=== PATIENT | male | born 1960 | race Caucasian/White ===

== ENCOUNTER 2019-09-25 14:52 | Observation (INO) | payer OTHER ==
[2019-09-25 17:49] LABS: #Basophils 0.1 thou/uL (0.0-0.2); #Eosinphils 0.3 thou/uL (0.0-0.7); #Lymphocytes 2.6 thou/uL (1.20-3.40); #Monocytes 0.7 thou/uL (0.11-0.59); #Neutrophils 4.8 thou/uL (1.40-6.50); %Basophils 1.4 % (0.0-1.0); %Eosinophils 3.6 % (0.0-10.0); %Lymphocytes 30.5 % (21.0-51.0); %Monocytes 7.9 % (0.0-10.0); %Neutrophils 56.6 % (42.0-75.0); Hemoglobin 17.4 g/dL (14.0-18.0); Mean Corpuscular HGB CONC 33.1 g/dL (32.0-36.0); Mean Corpuscular Hemoglobin 29.1 pg (27.0-31.0); Mean Corpuscular Volume 87.7 fL (78.0-98.0); Mean Platelet Volume 6.6 fL (7.4-10.4); Platelet Count 254 thou/uL (130-400); RBC Distribution Width 14.3 % (11.5-14.5); Red Blood Cell (RBC) Count 5.97 mill/uL (4.70-6.10); White Blood Cell (WBC) Count 8.6 thou/uL (4.8-10.8)
[2019-09-25 18:14] LABS: ALT (SGPT) 32 U/L (8-55); AST (SGOT) 22 U/L (5-34); Albumin 4.8 g/dL (3.5-5.0); Alkaline Phosphatase 132 U/L (40-110); Anion Gap 14 mmol/L (10-20); BUN (Urea Nitrogen) 15 mg/dL (8.4-25.7); Bilirubin, Total 0.4 mg/dL (0.2-1.2); Calc. Creatinine Clearance 0 mL/min (70-130); Calcium 9.8 mg/dL (7.8-10.44); Carbon Dioxide 25 mmol/L (22-29); Chloride 105 mmol/L (98-107); Estimated GFR-MDRD 69; Globulin 3.1 g/dL (2.4-3.5); Glucose 81 mg/dL (70-105); Potassium 4.5 mmol/L (3.5-5.1); Protein, Total 7.9 g/dL (6.0-8.3); Sodium 139 mmol/L (136-145)
[2019-09-25 18:22] VITALS: BMI 28.3
[2019-09-25] MEDS ORDERED: hydrALAZINE 20 MG/ML VIAL SLOW IVP PRN (19:00)
[2019-09-25] MEDS ORDERED: Nitroglycerin 0.4 MG TAB (25 Tab Bottle) PO PRN (19:00)
[2019-09-25] MEDS ORDERED: tiZANidine HCl 4 MG TAB PO PRN (19:00)
[2019-09-25] MEDS ORDERED: Acetaminophen 325 MG TAB PO PRN (19:00)
[2019-09-25] MEDS: Varenicline Tartrate 0.5 MG TAB PO SCH (20:16)
[2019-09-25] MEDS: Gabapentin 400 MG CAP PO SCH (20:16)
[2019-09-25] MEDS: HYDROcodone/Acetaminophen 7.5/325 mg Tablet PO SCH (20:17)
[2019-09-25 20:52] LABS: Troponin I 0.011 ng/mL (< 0.028)
--- NOTE | 2019-09-25 22:50 | HP ---
The patient currently does not have a primary care physician. CHIEF COMPLAINT: Chest pain. HISTORY OF PRESENT ILLNESS: Mr. Drake is a very pleasant 59-year-old gentleman who has history of hyperlipidemia as well as tuberculosis infection. He says that in the last 3 weeks he has been experiencing chest pain and he had 2 episodes more recently and says that the episodes have been becoming progressively more frequent. He says that he had an episode [place]. He says that he describes it as squeezing of his chest like somebody was trying to squeeze it to . He rates it about a 6/10. It is nonradiating. There are no associated symptoms such as nausea, vomiting, or diaphoresis. He says the episodes can last up to about 30 minutes and typically get better when he sits and rests. He says his saw him earlier today, clutching his chest and leaning over and basically insisted that he come to the emergency room for evaluation. There they did an EKG on him and noticed some T-wave inversions in V1 and V2, and he has been transferred to our facility for further evaluation. Currently, he is chest-pain free. He also denies any pains in his legs or any long trips. No leg swelling. No palpitations and prior to 3 weeks ago, he has not had any episodes like this before. He is a smoker and he has a strong family history and these are the reasons for his placement in observation. REVIEW OF SYSTEMS: All systems were reviewed and are negative except for that mentioned in the history of present illness. PAST MEDICAL HISTORY: Significant for hyperlipidemia, latent TB, and anxiety. PAST SURGICAL HISTORY: He has had cervical spine surgery x2, 1st an anterior approach and then posterior. He has had an appendectomy and right lower extremity surgery due to a fall when he was a child and he fractured his leg in 3 places. ALLERGIES: NO KNOWN DRUG ALLERGIES. SOCIAL HISTORY: He is . He used to work as a hand trucker. He has 3 children. He smokes about a pack a day. He says he is down from 2 packs a day and he has been a smoker "all of his life, but at least for 40 years, he rarely drinks alcohol." CURRENT MEDICATIONS: Include: 1. Fluoxetine 20 mg daily. 2. Gabapentin 800 mg t.i.d. 3. [place] 7.5/325 one tablet t.i.d. 4. Zanaflex 4 mg t.i.d. as needed. 5. Chantix 1 mg twice daily. PHYSICAL EXAMINATION: GENERAL: He is alert and oriented. He appears to be in no acute distress. He is well developed and well nourished. VITAL SIGNS: Blood pressure was 143/93, heart rate 66, respiratory rate of 18, and he is afebrile. HEENT: Pupils are equal, round, and reactive. Extraocular muscles are intact. His sclerae are anicteric. Throat, no erythema, no exudates. NECK: No adenopathy, no bruits. LUNGS: Clear to auscultation. There is no wheezing, no rales, no rhonchi. CARDIOVASCULAR: He has a normal S1 and S2. I did not appreciate an S3 or S4. No murmurs, clicks, or rubs. ABDOMEN: Soft, it is nontender, nondistended. Positive for bowel sounds. There is no rebound, no guarding, no organomegaly. EXTREMITIES: There is no clubbing or cyanosis. No edema. No calf tenderness. No joint effusions. NEUROLOGIC: The exam is grossly nonfocal. SKIN AND INTEGUMENT: No skin changes, no rash. LABORATORY DATA: The white blood cell count is 8.6, hemoglobin is 17.4, hematocrit is 52.4, and platelet count is 254. He had a troponin of less than 0.010. EKG was sinus at the rate of 67. He had some T-wave inversions in V1 and V2, and some nonspecific ST-T wave changes. EKG was reviewed by me. Chest x-ray also reviewed by me. It is actually poorly penetrated. The heart size is normal. There was no ST wave changes. ASSESSMENT: 1. This is a 59-year-old gentleman who presents to the emergency room with chest pain. The characteristics of which are suspicious for angina and that it is relieved by rest and has tightness characteristic. He also has a strong family history and is a smoker. For this reason, he is being placed in observation. He will be ruled out with cardiac enzymes and check his lipid panel and get an exercise stress test in the a.m. to further help stratify his risk for coronary artery disease. 2. Hyperlipidemia. Again, lipid panel will be checked. We will also need to reconcile and restart his cholesterol medication. 3. Tobacco abuse. It appears that he already has a plan to quit and has been cutting back and we will continue to encourage this. Job ID: [id number]
[2019-09-25] MEDS: Nitroglycerin 2% Ointment 1 INCH/1 GM Packet TOP SCH (23:02)
[2019-09-25 23:43] LABS: Troponin I Less than 0.010 ng/mL (< 0.028)
[2019-09-26] MEDS: Nitroglycerin 2% Ointment 1 INCH/1 GM Packet TOP SCH ×2 (04:15→15:25)
[2019-09-26 05:04] LABS: #Basophils 0.1 thou/uL (0.0-0.2); #Eosinphils 0.3 thou/uL (0.0-0.7); #Lymphocytes 2.6 thou/uL (1.20-3.40); #Monocytes 0.7 thou/uL (0.11-0.59); #Neutrophils 4.2 thou/uL (1.40-6.50); %Basophils 1.2 % (0.0-1.0); %Eosinophils 4.3 % (0.0-10.0); %Lymphocytes 32.2 % (21.0-51.0); %Monocytes 9.3 % (0.0-10.0); Hemoglobin 16.1 g/dL (14.0-18.0); Mean Corpuscular Hemoglobin 31.1 pg (27.0-31.0); Mean Corpuscular Volume 86.5 fL (78.0-98.0); Mean Platelet Volume 6.6 fL (7.4-10.4); Platelet Count 247 thou/uL (130-400); Red Blood Cell (RBC) Count 5.19 mill/uL (4.70-6.10)
[2019-09-26 05:25] LABS: Anion Gap 13 mmol/L (10-20); BUN (Urea Nitrogen) 19 mg/dL (8.4-25.7); Calc. Creatinine Clearance 75 mL/min (70-130); Calcium 9.5 mg/dL (7.8-10.44); Carbon Dioxide 27 mmol/L (22-29); Cardiac Risk 9.1 (Less than 4.5); Chloride 104 mmol/L (98-107); Cholesterol 283 mg/dl (< 200 Desired); Estimated GFR-MDRD 57; Glucose 106 mg/dL (70-105); HDL Cholesterol 31 mg/dL (>60 Neg Risk); Potassium 4.9 mmol/L (3.5-5.1); Sodium 139 mmol/L (136-145); Triglycerides 538 mg/dL (Less than 150)
--- NOTE | 2019-09-26 07:22 | PDOC.HOSPP ---
- Subjective Encounter Date: 09/26/19 Encounter Time: 08:15 Subjective: Follow up with Mr. Drake, who presented yesterday with an episode of chest pain , SOB and diaphoresis. Patient states that there are no new episodes of chest pain or difficulty breathing. Denies any new symptoms - Objective Vital Signs & Weight: Vital Signs (12 hours) Temp Pulse Resp BP Pulse Ox 09/26/19 04:44 98.4 F 84 16 135/80 94 L 09/25/19 23:10 97.5 F L 77 16 131/80 93 L Weight Weight 192 lb I&O: 09/25/19 09/26/19 09/27/19 06:59 06:59 06:59 Intake Total 290 Output Total 150 Balance 140 Result Diagrams: 09/26/19 04:44 09/26/19 04:44 Hospitalist ROS - Review of Systems All other systems reviewed; all pertinent +/- noted in HPI/Subj - Medication Medications: Active Medications Generic Name Dose Route Start Last Admin Trade Name Freq PRN Reason Stop Dose Admin Hydrocodone Bitart/Acetaminophen 1 tab 09/25/19 21:00 09/25/19 20:17 [place] 7.5/325 PO 1 tab TID RICO Administration Gabapentin 800 mg 09/25/19 21:00 09/25/19 20:16 Neurontin PO 800 mg TID RICO Administration Nitroglycerin 0.5 inch 09/25/19 22:00 09/26/19 04:15 Nitro-Bid 2% Ointment TOP Not Given Q8HR RICO Varenicline 1 mg 09/25/19 21:00 09/25/19 20:16 Chantix PO 1 mg BID RICO Administration - Exam Neck: no carotid bruit Heart: RRR, no murmur, no gallops, no rubs Respiratory: CTAB, wheezes (mild) Extremities: no cyanosis, no edema Musculoskeletal: normal tone, normal strength Psychiatric: normal affect, normal behavior, A&O x 3 Hosp A/P (1) Chest pain Code(s): R07.9 - CHEST PAIN, UNSPECIFIED Status: Acute (2) Blood in stool Code(s): K92.1 - MELENA Status: Acute - Plan * Chest pain- repeat cardiac enzymes, perform Stress test today * Elevated triglycerides and cholesterol- continue statin and begin a heart healthy diet * Blood in stool- refer to GI and perform colonoscopy outpatient * Patient seen and examined with Galina Voss MS-2 and agree with above. Mr. Drake has not had any chest pain today. Exam is unremarkable. Stress test was negative. However he has significant risk for CAD. Will start on aspirin Lipitor, and Carvediolol, and recommend Urgent outpatient Cardiology referral. If symptoms return- return to ER
[2019-09-26] MEDS ORDERED: Aspirin 325 mg Enteric Coated Tablet PO SCH (09:00)
[2019-09-26] MEDS ORDERED: FLU VACC QS2019-20(6MOS UP)/PF 60 MCG/0.5 ML SYRINGE IM ONE (09:00)
[2019-09-26] MEDS ORDERED: FLUoxetine HCl 20 MG CAP PO SCH (09:00)
[2019-09-26] MEDS: Gabapentin 400 MG CAP PO SCH ×2 (12:03→15:24)
[2019-09-26] MEDS: HYDROcodone/Acetaminophen 7.5/325 mg Tablet PO SCH ×2 (12:04→15:24)
[2019-09-26] MEDS: Varenicline Tartrate 0.5 MG TAB PO SCH (12:05)
--- NOTE | 2019-09-26 13:12 | NM ---
CARDIAC SPECT: CLINICAL HISTORY: 59-year-old male with chest pain. Dyslipidemia, smoker. Family history of coronary artery disease. TECHNIQUE: A myocardial perfusion scan was performed using the single isotope one day protocol with technetium-9 9m sestamibi. 11 mCi were injected intravenously for the rest exam followed by 30 mCi for the stress exam. Exercise stress was monitored and interpreted by Marlene Sheriff NP. FINDINGS: Homogeneous tracer distribution is seen in the myocardial segments on stress and rest images without fixed or reversible defects. GATED SPECT LVEF: 71%. WALL MOTION EXAM: Normal. IMPRESSION: Normal myocardial perfusion scan. POS: OFF
[2019-09-26 16:44] VITALS: BP 127/79; TEMP 97.6
--- NOTE | 2019-09-27 03:54 | DIS ---
DATE OF ADMISSION: 09/25/2019 DATE OF DISCHARGE: 09/26/2019 The patient currently does not have a primary care physician. DISCHARGE DISPOSITION: Home. DISCHARGE DIAGNOSES: 1. Chest pain, unknown etiology. 2. Hyperlipidemia. 3. Tobacco abuse. 4. History of latent tuberculosis. 5. History of anxiety. 6. Chronic pain. DISCHARGE MEDICATIONS: 1. Carvedilol 3.125 mg p.o. twice daily. 2. Atorvastatin 80 mg at bedtime. 3. Aspirin 81 mg daily. 4. Continue Chantix 1 tab twice daily. 5. Zanaflex 4 mg t.i.d. as needed. 6. [place] 7.5/325 one tablet t.i.d. as needed. 7. Gabapentin 800 mg p.o. t.i.d. 8. Prozac 20 mg p.o. daily. CODE STATUS: Full code. ALLERGIES: NO KNOWN DRUG ALLERGIES. PROCEDURES DONE DURING ADMISSION: The patient had a nuclear stress test, which was read as normal with homogeneous tracer distribution throughout the segments. There was no fixed or reversible defects. The ejection fraction was estimated at 71%. HOSPITAL COURSE: Mr. Drake is a pleasant 59-year-old gentleman who was admitted to the hospital with complaints of chest pain. The description of which was fairly typical. He also has history of smoking and a family history of heart disease. He was placed in observation and ruled out and an exercise Cardiolite test was performed, this was negative. The patient did reach his target heart rate. However, due to his significant risk factors, I do recommend that he have an outpatient cardiology evaluation and he will be discharged home on a low-dose aspirin as well as carvedilol and Lipitor and has been instructed to follow up with Dr. Stephanie Menon as soon as possible and also to get an outpatient referral to Cardiology. Job ID: [id number]
--- NOTE | 2019-09-29 17:02 | EKG ---
Test Reason : Blood Pressure : / mmHG Vent. Rate : 068 BPM Atrial Rate : 068 BPM P-R Int : 166 ms QRS Dur : 078 ms QT Int : 402 ms P-R-T Axes : 055 035 057 degrees QTc Int : 427 ms Normal sinus rhythm Nonspecific T wave abnormality Abnormal ECG Confirmed by MAYCO RAMEY ([id number]), technical writer and editor JENNIFER DEWITT ([id number]) on 09/29/2019 5:01:54 PM Referred By: Confirmed By:MAYCO RAMEY
== END 2019-09-26 18:28 | disposition home or self-care (01) ==
LOC: ERS 14:52 → 2SW 16:20
PROVIDERS: ADMIT Internal Medicine; ATTEND Internal Medicine
DX: R07.89 Other chest pain (principal); E78.2 Mixed hyperlipidemia; F17.210 Nicotine dependence, cigarettes, uncomplicated; F41.9 Anxiety disorder, unspecified; G89.29 Other chronic pain; K92.1 Melena; Z22.7 Latent tuberculosis; Z82.49 Family history of ischemic heart disease and other diseases of the circulatory system; Z79.899 Other long term (current) drug therapy
CPT/HCPCS: 36415; 78452; 80048; 80061; 83880; 85025; 90471; 90686; 90732; 93005; 93017; 94760; A9500; G0008; G0009; G0378

== ENCOUNTER 2019-12-12 06:45 | Day surgery (SDC) | payer OTHER, BC ==
[2019-12-11 12:50] VITALS: BMI 29.5
[2019-12-12 07:55] VITALS: BP 112/71; TEMP 98.8
--- NOTE | 2019-12-12 10:29 | RAD ---
CERVICAL MYELOGRAM: HISTORY: Previous cervical fusion. Cervical radiculopathy. EXPOSURE: 0.6 minutes, 137.7 mGy/m2. FINDINGS: Two-view racking technician lumbar spine radiograph demonstrates 5 lumbar-type vertebrae. Vertebral body height is maintained. No fracture. No spondylolisthesis or spondylolysis. Disc space heights are preserved. Visualized bony pelvis and sacrum are intact. Two-view racking technician cervical spine radiograph demonstrates an anterior fusion plate with transvertebral jonn dy screws at C4, C5 and C6. Posterior fusion hardware is noted from C4 through C6. C4-C5 and C5-C6 disc prosthesis. No perihardware lucency. No prevertebral soft tissue swelling. Predental space is no rmal. Successful lumbar puncture. A total of 9 cc of Isovue-M 300 contrast was administered intrathecally. Patient tolerated the procedure well. No immediate or postprocedural complications. TECHNIQUE: Consent obtained to perform a lumbar puncture for cervical myelogram. Patient's back was evaluated. T he L3-L4 level was deemed appropriate. Skin was prepped and draped in a sterile fashion. 1% lidocaine, buffered with sodium bicarbonate was used for local anesthesia. Under fluoroscopic guidanc e, a 22-gauge spinal needle was advanced into the CSF space. A total of 9 cc of Isovue-M 300 contrast was administered intrathecally. Patient tolerated the procedure well. No immediate or postpr ocedure complications. IMPRESSION: Successful lumbar puncture for cervical myelogram. Transcribed Date/Time: 12/12/2019 10:35 AM
--- NOTE | 2019-12-12 11:16 | CT ---
POST MYELOGRAM CERVICAL SPINE CT: HISTORY: Cervical fusion, anterior and posterior. Cervical radiculopathy. COMPARISON: None. TECHNIQUE: Cervical spine CT is performed in the axial length. Three-dimensional reformatted images are submitte d. FINDINGS: No craniocervical dissociation. Appropriate alignment of the lateral masses of C1 and C2. Intact odon toid process. No cervical spine fracture. Vertebral body heights are maintained. No acute abnormality with regard to the soft tissue neck structures. Emphysematous changes in the sheila g apices. Anterior fusion plate with transvertebral body screw at C4, C5 and C6. No associated anterior fusion hardware lucency. There are bilateral trans-facet screws at C4, C5 and C6 with associated vertical stabilization sterling. No posterior element perihardware lucency. C4-C5 and C5-C6 disc prosthesis. C2-C3: No significant central canal stenosis. Neural foramina are patent. C3-C4: Broad-based disc bulge with a central disc herniation contacts the ventral cord. Mild to moder ate central canal stenosis. Moderate to severe bilateral neural foraminal narrowing due to uncovertebral and facet hypertrophy. C4-C5:Disc prosthesis. Broad-based osteophyte ridge with a central osteophyte that does abut and defo rm the midline cord. Mild to moderate central canal stenosis. Bilaterally, neural foramina are mildly narrowed due to uncal vertebral hypertrophy. C5-C6: Broad-based osteophyte ridge which abuts the thecal sac. There is mild mass effect upon the ce rvical cord. Mild central canal stenosis. Moderate bilateral neural foraminal narrowing due to uncovertebral hypertrophy. C6-C7:Broad-based disc-osteophyte complex abuts the thecal sac. Mild central canal stenosis. Moderate bilateral foraminal narrowing due to uncovertebral hypertrophy. C7-T1: No significant central canal stenosis. Neural foramina are patent. IMPRESSION: 1. .Anterior and posterior fusion from C4 through C6 as described above. No perihardware lucency. 2. Mild to moderate central canal stenosis at C3-C4 and C4-C5, mild central canal stenosis at C5-C6 a nd mild central canal stenosis at C6-C7. 3. Varying degrees of neural foraminal narrowing as described above. Transcribed Date/Time: 12/12/2019 11:30 AM
[2019-12-12] MEDS ORDERED: Iopamidol-M 300 61% 15 ML VIAL ONE (11:43)
== END 2019-12-12 09:35 | disposition home or self-care (01) ==
LOC: RAD 06:45
PROVIDERS: ATTEND Neurological Surgery
PROC: B01B1ZZ Fluoroscopy of Spinal Cord using Low Osmolar Contrast (ICD-10-PCS; principal; 2019-12-12)
DX: M48.02 Spinal stenosis, cervical region (principal); M54.12 Radiculopathy, cervical region; E78.00 Pure hypercholesterolemia, unspecified; F41.9 Anxiety disorder, unspecified; F32.9 Major depressive disorder, single episode, unspecified; F17.200 Nicotine dependence, unspecified, uncomplicated; Z79.82 Long term (current) use of aspirin; Z79.899 Other long term (current) drug therapy; Z86.15 Personal history of latent tuberculosis infection; Z98.1 Arthrodesis status
CPT/HCPCS: 62302; 72126; Q9967

== ENCOUNTER 2020-01-11 06:23 | Outpatient (CLI) | payer OTHER, BC ==
[2020-01-11 09:54] LABS: Mean Corpuscular HGB CONC 34.6 g/dL (32.0-36.0); Mean Corpuscular Hemoglobin 30.4 pg (27.0-31.0); Mean Platelet Volume 6.8 fL (7.4-10.4); Platelet Count 239 thou/uL (130-400); RBC Distribution Width 13.9 % (11.5-14.5); Red Blood Cell (RBC) Count 5.59 mill/uL (4.70-6.10); White Blood Cell (WBC) Count 10.9 thou/uL (4.8-10.8)
[2020-01-11 10:14] LABS: Anion Gap 13 mmol/L (10-20); BUN (Urea Nitrogen) 12 mg/dL (8.4-25.7); Calc. Creatinine Clearance 0 mL/min (70-130); Carbon Dioxide 26 mmol/L (22-29); Chloride 105 mmol/L (98-107); Estimated GFR-MDRD 61; Glucose 129 mg/dL (70-105); Sodium 140 mmol/L (136-145)
[2020-01-11 17:50] LABS: SARS-CoV-2 MS2 Positive; SARS-CoV-2 N Gene Negative; SARS-CoV-2 S Gene Negative; SARS-CoV-2 orf1ab Negative
== END 2020-01-11 06:24 | disposition home or self-care (01) ==
LOC: LABBT 06:23
PROVIDERS: ATTEND Neurological Surgery
DX: Z01.818 Encounter for other preprocedural examination (principal); Z11.59 Encounter for screening for other viral diseases; M54.12 Radiculopathy, cervical region
CPT/HCPCS: 80048; 85027; 87635; 93005; 93010; U0003

== ENCOUNTER 2020-01-11 08:30 | Inpatient (IN) | payer OTHER ==
[2020-01-11 09:01] VITALS: BMI 28.0
[2020-03-06] MEDS ORDERED: Fentanyl 100 MCG/2 ML VIAL ONE ×3 (06:40→09:39)
[2020-03-06] MEDS ORDERED: Lidocaine 2% Jelly 5 ML TUBE ONE (06:41)
[2020-03-06] MEDS ORDERED: Promethazine HCl 25 MG/ML VIAL IM PRN ×2 (08:41→08:48)
[2020-03-06] MEDS ORDERED: Promethazine HCl 25 MG/ML VIAL SLOW IVP PRN (08:41)
[2020-03-06] MEDS ORDERED: Ondansetron HCl/PF 4 MG/2 ML Vial IVP PRN (08:41)
[2020-03-06] MEDS ORDERED: traMADol HCl 50 MG TAB PO PRN (08:48)
[2020-03-06] MEDS ORDERED: Promethazine 25 MG TAB PO PRN (08:48)
[2020-03-06] MEDS ORDERED: Milk Of Magnesia 30 ML UDCUP PO PRN (08:48)
[2020-03-06] MEDS ORDERED: Ondansetron PF 4 MG/2 ML Vial IVP PRN (08:48)
[2020-03-06] MEDS ORDERED: Promethazine HCl 12.5 MG SUPP PR PRN (08:48)
[2020-03-06] MEDS ORDERED: diphenhydrAMINE 25 MG CAP PO PRN (08:48)
[2020-03-06] MEDS ORDERED: Morphine 2 MG/ML VIAL SLOW IVP PRN (08:48)
[2020-03-06] MEDS ORDERED: Acetaminophen/Codeine 30-300mg Tablet PO PRN (08:48)
[2020-03-06] MEDS ORDERED: Morphine 4 MG/ML VIAL SLOW IVP PRN (08:48)
[2020-03-06] MEDS ORDERED: diphenhydrAMINE 50 MG/ML VIAL IVP PRN (08:48)
[2020-03-06] MEDS ORDERED: Mag-Al 1200 mg/1200 mg/30 ML UDCUP PO PRN (08:48)
--- NOTE | 2020-03-06 08:51 | OP ---
DATE OF PROCEDURE: 03/06/2020 NATIONAL INVESTIGATIVE PRODUCER: Sonia Lagos PA-C PROCEDURES PERFORMED: Removal of hardware C4 through C6, exploration of spinal fusion C4 through C6, anterior cervical diskectomy C6-C7, interbody arthrodesis, intervertebral biomechanical device, local morselized autograft, demineralized bone matrix, and anterior titanium instrumentation C6-C7. DESCRIPTION OF PROCEDURE: The patient was brought to the operating room and intubated. He was positioned supine with the head in modest extension on a gel-filled donut. An incision made in the right precervical area and dissected medial to the sternocleidomastoid muscle, identified the previous anterior plate. This was removed without difficulty. The fusion was explored and did appear to be solid. We next debrided extensive anterior osteophytes at C6-C7, placed distraction across this disk space and removed the intervertebral disks. The bony endplates were then decorticated for the purpose of arthrodesis and appropriate-sized intervertebral biomechanical PEEK device was brought into the field. It was filled with demineralized bone matrix and local morselized autograft, and tapped in place securely at C6-C7. Next an anterior plate was brought into the field and secured to C6 and C7 using two 14 mm screws at each level. The wound was then extensively irrigated MAC hemostasis was secured and the wound was closed in anatomic layers over drain. Job ID: [id number]
[2020-03-06] MEDS ORDERED: Tamsulosin HCl 0.4 MG CAP ONE (08:55)
[2020-03-06] MEDS: Sodium Chloride 0.9% 1,000 ML IV SCH ×2 (10:15→23:17)
[2020-03-06] MEDS ORDERED: Lidocaine 1% PF 5 ML VIAL ONE (11:19)
[2020-03-06] MEDS ORDERED: Ondansetron PF 4 MG/2 ML Vial ONE (11:19)
[2020-03-06] MEDS ORDERED: Glycopyrrolate 0.2 MG/ML 5 ML SYRINGE ONE (11:19)
[2020-03-06] MEDS ORDERED: Dexamethasone 20 MG/5 ML VIAL ONE (11:19)
[2020-03-06] MEDS ORDERED: PROPOFOL 200 MG/20 ML VIAL ONE (11:19)
[2020-03-06] MEDS ORDERED: Rocuronium Bromide 10 MG/ML (10ML VIAL) ONE (11:19)
[2020-03-06] MEDS: CEFAZOLIN 2 GM in Premix Bag 1 BAG IVPB SCH ×2 (14:57→21:23)
[2020-03-06] MEDS: Acetaminophen/Codeine 30-300mg Tablet PO PRN ×2 (15:12→21:22)
[2020-03-06] MEDS: Carvedilol 3.125 MG TAB PO SCH (17:38)
[2020-03-06] MEDS: tiZANidine HCl 4 MG TAB PO PRN (21:23)
[2020-03-06] MEDS: Varenicline Tartrate 0.5 MG TAB PO SCH (21:23)
[2020-03-06] MEDS: Gabapentin 400 MG CAP PO SCH (21:23)
[2020-03-06] MEDS: traMADol HCl 50 MG TAB PO PRN (23:15)
[2020-03-07] MEDS: CEFAZOLIN 2 GM in Premix Bag 1 BAG IVPB SCH (05:39)
[2020-03-07] MEDS: traMADol HCl 50 MG TAB PO PRN (05:42)
[2020-03-07] MEDS: tiZANidine HCl 4 MG TAB PO PRN (05:43)
[2020-03-07] MEDS ORDERED: Tamsulosin HCl 0.4 MG CAP PO SCH (06:00)
[2020-03-07 08:20] VITALS: BP 123/73; TEMP 98.2
[2020-03-07] MEDS: Acetaminophen/Codeine 30-300mg Tablet PO PRN (09:55)
[2020-03-07] MEDS: Gabapentin 400 MG CAP PO SCH (09:56)
[2020-03-07] MEDS: Carvedilol 3.125 MG TAB PO SCH (09:56)
[2020-03-07] MEDS: Varenicline Tartrate 0.5 MG TAB PO SCH (09:56)
--- NOTE | 2020-03-09 08:21 | DIS ---
DATE OF ADMISSION: 03/06/2020 DATE OF DISCHARGE: 03/07/2020 HOSPITAL COURSE: The patient is a 59-year-old male recently evaluated by us for progressive neck pain. He was found to have increased degenerative changes below his prior fusion at C6-C7. He underwent removal of hardware and C6-C7 ACDF on 03/06/2020. Following the surgery, he was transitioned to the med/surg floor, where his pain has been well-controlled with p.o. medications, he is tolerating a regular diet, and he is voiding appropriately. ALEXANDER drain had minimal output over postoperative day #1, only 20 mL out over the first night. On exam, on postoperative day #1, he was awake and alert, in no acute distress. Free active range of motion of all extremities. No focal motor weakness. No reflex asymmetry. Incision was clean, dry, and intact. We will plan to remove his drain and dismiss the patient to home. I have discussed home care precautions and will follow up with the patient in 2 weeks. EXHIBITS MANAGER Jaycee was checked prior to discharge. Job ID: [id number]
== END 2020-03-07 11:15 | disposition home or self-care (01) | DRG 473 ==
LOC: SURG A 03-06 05:39
PROVIDERS: ADMIT Neurological Surgery; ATTEND Neurological Surgery
PROC: 0RG10A0 Fusion of Cervical Vertebral Joint with Interbody Fusion Device, Anterior Approach, Anterior Column, Open Approach (ICD-10-PCS; principal; 2020-03-06)
PROC: 0RB30ZZ Excision of Cervical Vertebral Disc, Open Approach (ICD-10-PCS; 2020-03-06)
PROC: 0RP104Z Removal of Internal Fixation Device from Cervical Vertebral Joint, Open Approach (ICD-10-PCS; 2020-03-06)
DX: M47.22 Other spondylosis with radiculopathy, cervical region (principal); I10 Essential (primary) hypertension; E78.5 Hyperlipidemia, unspecified; Z79.899 Other long term (current) drug therapy; Z79.82 Long term (current) use of aspirin; Z11.59 Encounter for screening for other viral diseases
CPT/HCPCS: 76000; 80048; 85027; 87635; 93005; C1713; C1776; J0690; J1100; J2270; J2405; J2704; J3010; J3490; U0003

== ENCOUNTER 2020-03-03 05:58 | Outpatient (CLI) | payer OTHER ==
[2020-03-03 10:52] LABS: Mean Corpuscular HGB CONC 34.1 g/dL (32.0-36.0); Mean Corpuscular Hemoglobin 29.4 pg (27.0-31.0); Mean Corpuscular Volume 86.2 fL (78.0-98.0); Platelet Count 261 thou/uL (130-400); RBC Distribution Width 13.5 % (11.5-14.5); White Blood Cell (WBC) Count 8.2 thou/uL (4.8-10.8)
[2020-03-03 11:51] LABS: Anion Gap 14 mmol/L (10-20); BUN (Urea Nitrogen) 18 mg/dL (8.4-25.7); Calc. Creatinine Clearance 0 mL/min (70-130); Calcium 9.8 mg/dL (7.8-10.44); Carbon Dioxide 23 mmol/L (22-29); Chloride 108 mmol/L (98-107); Estimated GFR-MDRD 66; Glucose 94 mg/dL (70-105); Potassium 4.8 mmol/L (3.5-5.1); Sodium 140 mmol/L (136-145)
[2020-03-04 12:20] LABS: SARS-CoV-2 MS2 Positive; SARS-CoV-2 N Gene Negative; SARS-CoV-2 S Gene Negative; SARS-CoV-2 orf1ab Negative
== END 2020-03-03 05:59 | disposition home or self-care (01) ==
LOC: LABBT 05:58
PROVIDERS: ATTEND Neurological Surgery
DX: Z01.818 Encounter for other preprocedural examination (principal); Z11.59 Encounter for screening for other viral diseases; M54.12 Radiculopathy, cervical region
CPT/HCPCS: 80048; 85027; 87635; 93005; 93010; U0003

== ENCOUNTER 2020-05-09 10:39 | Outpatient (CLI) | payer OTHER ==
--- NOTE | 2020-05-09 10:58 | RAD ---
CERVICAL SPINE SERIES: Date: 05/09/2020 HISTORY: Surgical follow-up, neck pain, radiculopathy. COMPARISON: 03/20/2020. FINDINGS: Postoperative changes of the spine appear stable. Posterior facet screws at the C4-5-6 levels, and an terior plate and screws at C6-7, are all unchanged. IMPRESSION: Stable exam. POS: JARED
== END 2020-05-09 10:40 | disposition home or self-care (01) ==
LOC: TBSIIMAG 10:39
PROVIDERS: ATTEND Neurological Surgery
DX: M54.12 Radiculopathy, cervical region (principal)
CPT/HCPCS: 72040